=== PATIENT | female | born 1975 | race Caucasian/White ===

== ENCOUNTER 2017-12-02 00:36 | Inpatient (IN) | payer OTHER ==
[~2017-12-02] VITALS: Ht 165.1 cm; Wt 102.1 kg
[2017-12-02] MEDS ORDERED: PREN1SGL25 PO (05:59)
[2017-12-02] MEDS ORDERED: LACTATED RINGERS 1,000 ML IV SCH (05:59)
[2017-12-02] MEDS ORDERED: METHYLERGONOVINE 0.2 MG/ML AMP IM PRN ×2 (06:00→07:30)
[2017-12-02] MEDS ORDERED: CARBOPROST 250 MCG/ML AMP IM PRN (06:00)
[2017-12-02 06:34] LABS: BASOPHILS # (AUTO) 0.2 K/uL (0.00-0.22); BASOPHILS % (AUTO) 1.3 % (0.0-2.0); EOSINOPHILS # (AUTO) 0.5 K/uL (0-0.4); EOSINOPHILS % (AUTO) 3.6 % (0.0-4.0); HEMATOCRIT 39.2 % (36-48); HEMOGLOBIN 12.7 g/dL (12.0-16.0); LYMPHOCYTES # (AUTO) 3.2 K/uL (2.5-16.5); LYMPHOCYTES % (AUTO) 23.9 % (20.5-51.1); MEAN CORPUSCULAR HEMOGLOBIN 30 pg (27-31); MEAN CORPUSCULAR HGB CONC 33 g/dL (33-37); MEAN CORPUSCULAR VOLUME 93.2 fL (80-94); MONOCYTES # (AUTO) 0.9 K/uL (0.8-1.0); NEUTROPHILS # (AUTO) 8.4 K/uL (1.8-7.7); NEUTROPHILS % (AUTO) 64.2 % (42.2-75.2); PLATELET COUNT (AUTO) 169 K/uL (140-450); RED CELL DISTRIBUTION WIDTH 13.1 % (11.6-13.7); WHITE BLOOD COUNT (AUTO) 13.2 K/uL (4.8-10.8)
[2017-12-02 06:48] LABS: BARBITURATE, URINE NEG. ng/ml (NEG <=200); BENZODIAZEPINE, URINE NEG. ng/mL (NEG <=200); CANNABINOID, URINE NEG. ng/mL (NEG <=50); COCAINE, URINE NEG. ng/mL (NEG <=300); OPIATE, URINE NEG. ng/mL (NEG <=2000); PHENCYCLIDINE SCREEN,URINE NEG. ng/mL (NEG <=25)
[2017-12-02 07:03] LABS: ANION GAP 14.9 (8-16); CARBON DIOXIDE 22.9 mmol/L (21-32); CREATININE 0.7 mg/dL (0.6-1.3); POTASSIUM 3.8 mmol/L (3.5-5.1)
[2017-12-02 07:09] LABS: ALBUMIN 2.2 g/dL (3.4-5.0); TOTAL BILIRUBIN 0.1 mg/dL (0.0-1.0)
[2017-12-02 07:23] VITALS: BP 113/71
[2017-12-02] MEDS ORDERED: METHYLERGONOVINE 0.2 MG/ML AMP ONE (07:23)
[2017-12-02] MEDS ORDERED: OXYTOCIN 10 UNITS/ML VIAL ONE (07:23)
[2017-12-02] MEDS ORDERED: MIDAZOLAM 2 MG/2 ML VIAL ONE (07:27)
[2017-12-02] MEDS ORDERED: fentaNYL 0.05 MG/ML VIAL ONE (07:27)
[2017-12-02] MEDS ORDERED: MORPHINE PRES FREE 10 MG/10 ML AMP IV ONE (07:28)
[2017-12-02] MEDS ORDERED: BUPIVACAINE-MPF 0.5% 10 ML VIAL INJ ONE (07:29)
[2017-12-02] MEDS ORDERED: TRIMETHOBENZAMIDE 200 MG/2 ML SYR IM PRN (07:30)
[2017-12-02] MEDS ORDERED: MEASLES, MUMPS, AND RUBELLA 1 VIAL SQVAC PRN (07:30)
[2017-12-02 07:33] LABS: APPEARANCE,URINE CLEAR (CLEAR); BILIRUBIN,URINE NEGATIVE (NEGATIVE); BLOOD, URINE NEGATIVE (NEGATIVE); COLOR,URINE YELLOW (YELLOW); LEUKOCYTE ESTERASE ,URINE NEGATIVE (NEGATIVE); NITRITE, URINE NEGATIVE (NEGATIVE); UGLUCOSE NEGATIVE (NEGATIVE)
[2017-12-02] MEDS ORDERED: fentaNYL 0.05 MG/ML VIAL IVP ONE (07:45)
[2017-12-02] MEDS ORDERED: diphenhydrAMINE 50 MG/ML VIAL ONE (07:50)
[2017-12-02] MEDS ORDERED: OXYTOCIN 20 UNITS in LACTATED RINGERS 1,000 ML IV SCH (08:13)
[2017-12-02] MEDS ORDERED: NALBUPHINE 10 MG/ML AMP IVP PRN (08:15)
[2017-12-02] MEDS ORDERED: HYDROmorphone PFS 2 MG/ML SYR IVP PRN (08:15)
[2017-12-02] MEDS ORDERED: diphenhydrAMINE 50 MG/ML VIAL IVP PRN ×2 (08:15)
[2017-12-02] MEDS ORDERED: NALOXONE 0.4 MG/ML VIAL IVP PRN ×3 (08:15)
[2017-12-02] MEDS ORDERED: ONDANSETRON 4 MG/2 ML VIAL IVP PRN ×2 (08:15)
[2017-12-02] MEDS ORDERED: MEPERIDINE 25 MG/ML SYR IVP PRN (08:15)
[2017-12-02] MEDS ORDERED: ONDANSETRON 4 MG/2 ML VIAL ONE (08:30)
[2017-12-02] MEDS: OXYTOCIN 20 UNITS/LR PREMIX 1,000 ML IV ONE ×2 (08:50→09:05)
--- NOTE | 2017-12-02 10:19 | NUR ---
PATIENT HAS BEEN SCREENED AND CATEGORIZED LOW NUTRITION RISK. PATIENT WILL BE SEEN WITHIN 7 DAYS OF ADMISSION. 12/08/[address]
[2017-12-02] MEDS: KETOROLAC 30 MG/ML VIAL IM/IVP SCH ×2 (12:31→18:12)
[2017-12-02] MEDS: OXYTOCIN 20 UNITS in LACTATED RINGERS 1,000 ML IV SCH ×2 (13:45→21:22)
[2017-12-03] MEDS: KETOROLAC 30 MG/ML VIAL IM/IVP SCH (00:05)
[2017-12-03] MEDS ORDERED: IBUPROFEN 800 MG TAB PO PRN (02:00)
[2017-12-03] MEDS ORDERED: HYDROcodone/APAP 5/325 MG 1 TAB TAB PO PRN (02:00)
[2017-12-03] MEDS ORDERED: TEMAZEPAM 15 MG CAP PO PRN (02:00)
[2017-12-03] MEDS: OXYTOCIN 20 UNITS in LACTATED RINGERS 1,000 ML IV SCH (05:30)
[2017-12-03 06:32] LABS: BASOPHILS # (AUTO) 0.1 K/uL (0.00-0.22); BASOPHILS % (AUTO) 0.5 % (0.0-2.0); EOSINOPHILS # (AUTO) 0.4 K/uL (0-0.4); EOSINOPHILS % (AUTO) 3.2 % (0.0-4.0); HEMATOCRIT 34.2 % (36-48); HEMOGLOBIN 11.2 g/dL (12.0-16.0); LYMPHOCYTES # (AUTO) 2.2 K/uL (2.5-16.5); LYMPHOCYTES % (AUTO) 15.8 % (20.5-51.1); MEAN CORPUSCULAR HEMOGLOBIN 31 pg (27-31); MEAN CORPUSCULAR HGB CONC 33 g/dL (33-37); MEAN CORPUSCULAR VOLUME 95.3 fL (80-94); MONOCYTES # (AUTO) 0.8 K/uL (0.8-1.0); MONOCYTES % (AUTO) 5.9 % (1.7-9.3); NEUTROPHILS # (AUTO) 10.2 K/uL (1.8-7.7); NEUTROPHILS % (AUTO) 74.6 % (42.2-75.2); PLATELET COUNT (AUTO) 134 K/uL (140-450); RED BLOOD CELL COUNT(AUTO) 3.59 MIL/uL (4.20-5.40); RED CELL DISTRIBUTION WIDTH 13.6 % (11.6-13.7); WHITE BLOOD COUNT (AUTO) 13.6 K/uL (4.8-10.8)
[2017-12-03] MEDS: SIMETHICONE 80 MG TAB.CHEW PO PRN ×3 (08:41→17:39)
[2017-12-03] MEDS: oxyCODONE/APAP 5/325 MG 1 TAB TAB PO PRN ×4 (08:41→22:30)
[2017-12-03] MEDS: DOCUSATE SOD/SENNA 50/8.6 MG 1 TAB PO SCH (21:15)
[2017-12-04] MEDS: SIMETHICONE 80 MG TAB.CHEW PO PRN (05:47)
[2017-12-04] MEDS: oxyCODONE/APAP 5/325 MG 1 TAB TAB PO PRN ×3 (05:48→20:12)
[2017-12-04] MEDS: DOCUSATE SOD/SENNA 50/8.6 MG 1 TAB PO SCH (20:12)
[2017-12-05] MEDS: oxyCODONE/APAP 5/325 MG 1 TAB TAB PO PRN ×4 (04:09→21:43)
[2017-12-05] MEDS: DOCUSATE SOD/SENNA 50/8.6 MG 1 TAB PO SCH (21:43)
[2017-12-05] MEDS: SIMETHICONE 80 MG TAB.CHEW PO PRN (21:44)
[2017-12-06] MEDS: oxyCODONE/APAP 5/325 MG 1 TAB TAB PO PRN (08:04)
== END 2017-12-06 13:45 | disposition home or self-care (01) | DRG 540 ==
LOC: MLD 05:30 → MFCC 08:00
PROVIDERS: ADMIT Obstetrics & Gynecology; ATTEND Obstetrics & Gynecology
PROC: 0UB70ZZ Excision of Bilateral Fallopian Tubes, Open Approach (ICD-10-PCS; 2017-12-02)
PROC: 10D00Z1 Extraction of Products of Conception, Low, Open Approach (ICD-10-PCS; principal; 2017-12-02 07:30)
PROC: 3E0234Z Introduction of Serum, Toxoid and Vaccine into Muscle, Percutaneous Approach (ICD-10-PCS; 2017-12-04)
DX: O34.211 Maternal care for low transverse scar from previous cesarean delivery (principal); G95.89 Other specified diseases of spinal cord; I73.1 Thromboangiitis obliterans [Buerger's disease]; O99.42 Diseases of the circulatory system complicating childbirth; O99.354 Diseases of the nervous system complicating childbirth; F17.200 Nicotine dependence, unspecified, uncomplicated; O99.214 Obesity complicating childbirth; E66.01 Morbid (severe) obesity due to excess calories; O99.334 Smoking (tobacco) complicating childbirth; O99.824 Streptococcus B carrier state complicating childbirth; Z3A.39 39 weeks gestation of pregnancy; Z37.0 Single live birth; Z30.2 Encounter for sterilization; Z23 Encounter for immunization; Z80.41 Family history of malignant neoplasm of ovary; Z80.8 Family history of malignant neoplasm of other organs or systems; Z84.1 Family history of disorders of kidney and ureter; Z83.6 Family history of other diseases of the respiratory system; Z68.37 Body mass index [BMI] 37.0-37.9, adult
CPT/HCPCS: 36415; 51702; 80053; 80305; 81003; 85025; 86592; 86886; 86900; 86901; 87081; 88302; 90715; J0690; J1200; J1885; J2210; J2250; J2270; J2405; J2590; J3010; J3490; J7060; J7120

== ENCOUNTER 2020-07-10 22:22 | Emergency (ER) | payer OTHER ==
[~2020-07-10] VITALS: Ht 165.1 cm; Wt 61.2 kg
[~2020-07-10 22:22] MED LIST: PREN1SGL25 PO
[2020-07-10 22:54] VITALS: BP 107/77
[2020-07-10 23:12] VITALS: BP 107/77
== END 2020-07-10 23:17 | disposition home or self-care (01) ==
LOC: MED 22:22
DX: J02.9 Acute pharyngitis, unspecified (principal); Z79.899 Other long term (current) drug therapy
CPT/HCPCS: 99283